=== PATIENT | male | born 1990 | race Two or more races ===

== ENCOUNTER 2022-10-31 23:26 | Emergency (ER) | payer BC ==
[2022-10-31] MEDS ORDERED: Ibuprofen 600 MG Tab PO ONE (23:43)
== END 2022-11-01 01:14 | disposition home or self-care (01) ==
LOC: MW.ED 23:26
DX: S00.81XA Abrasion of other part of head, initial encounter (principal); W22.8XXA Striking against or struck by other objects, initial encounter; Y92.89 Other specified places as the place of occurrence of the external cause; Y99.0 Civilian activity done for income or pay
CPT/HCPCS: 70486; 99283; A9270